=== PATIENT | male | born 1995 | race Caucasian/White ===

== ENCOUNTER → 2016-10-26 | Outpatient (CLI) | payer BC, OTHER ==
[~2016-10-26] MED LIST: CIPR0.3S4 OPR; HYDR-5688 PO
[2016-10-26 16:57] LABS: BASO % 0.2 %; BASO ABS # 0.01 K/uL (0-0.2); COMPLETE YES; EOS % 0.9 %; HEMATOCRIT 42.8 % (42-52); IG% 0.5 %; LYMPH % 25.5 %; LYMPH ABS # 1.62 K/uL (1.2-3.4); MEAN CORPUSCULAR HEMOGLOBIN 29.5 pg (25-34); MEAN PLATELET VOLUME 9.3 fL (7.4-10.4); MONO % 8.6 %; NEUT % 64.3 %; PLATELET COUNT 272 K/uL (130-400); RED BLOOD COUNT 5.22 M/uL (4.7-6.1); WHITE BLOOD COUNT 6.36 K/uL (4.8-10.8)
[2016-10-26 17:01] LABS: URINE APPEARANCE CLEAR (CLEAR); URINE BILIRUBIN NEG (NEG); URINE COLOR YELLOW; URINE EPITHELIAL CELL AUTO 0-5 /lpf (0-5); URINE NITRITE NEG (NEG); URINE SPECIFIC GRAVITY 1.023 (1.000-1.030); UROBILINOGEN NEG (NEG); ZZUR CULT IF INDIC CLEAN CATCH NO
[2016-10-26 17:10] LABS: ALT/SGPT 52 U/L (12-78); BLOOD UREA NITROGEN 19 mg/dl (7-18); BUN/CREATININE RATIO 19.3 (10-20); CALCIUM 8.6 mg/dl (8.5-10.1); CARBON DIOXIDE 26 mmol/L (21-32); CHLORIDE 103 mmol/L (98-107); GLUCOSE 108 mg/dl (70-99); POTASSIUM 3.7 mmol/L (3.5-5.1); SODIUM 139 mmol/L (136-145)
[2016-10-26 17:13] LABS: ALB/GLOB RATIO 1.2 (0.9-2); ALKALINE PHOSPHATASE 63 U/L (45-117); AST/SGOT 28 U/L (15-37)
[2016-10-26 17:15] LABS: MANUAL MICROSCOPIC REQUIRED? NO; REVIEW REQ? NO
== END | disposition home or self-care (01) ==
LOC: C.LABBFT 15:11
PROVIDERS: ATTEND Nurse Practitioner
DX: R10.812 Left upper quadrant abdominal tenderness (principal)

== ENCOUNTER → 2016-10-26 | Outpatient (CLI) | payer BC ==
--- NOTE | 2016-10-26 16:04 | DIAGNOSTIC IMAGING REPORT ---
KUB CLINICAL HISTORY: Left upper quadrant abdominal pain. FINDINGS: 2 AP abdominal radiographs are obtained. No prior studies are available for comparison at the time of dictation. There is a nonobstructed abdominal bowel gas pattern. Mild colonic fecal retention is noted. There is no evidence of intraperitoneal free air. No abnormal abdominal calcifications are identified. The bony structures appear intact. IMPRESSION: Unremarkable abdominal radiographs. Electronically signed by: Mukesh Alvarez M.D. 10/26/2016 4:02 PM Dictated Date/Time: 10/26/2016 4:01 PM
== END | disposition home or self-care (01) ==
LOC: C.RAD1850 15:52
PROVIDERS: ATTEND Nurse Practitioner
DX: R10.812 Left upper quadrant abdominal tenderness (principal)

== ENCOUNTER → 2016-10-28 | Outpatient (CLI) | payer BC ==
--- NOTE | 2016-10-28 12:13 | DIAGNOSTIC IMAGING REPORT ---
ABDOMINAL ULTRASOUND, RIGHT UPPER QUADRANT HISTORY: Left upper quadrant abdominal pain.. COMPARISON: None. FINDINGS: The size of the spleen is borderline increased, measuring 13.5 cm in maximal diameter. No perisplenic fluid is present. No splenic lesion is identified. The left kidney is unremarkable. There is no left hydronephrosis. Sonography of the left aspect of the abdomen at site of maximal pain revealed no abnormality. IMPRESSION: 1. Borderline splenomegaly. No perisplenic fluid. 2. No left hydronephrosis. 3. No sonographic abnormality within the left aspect of the abdomen at site of maximal pain. Electronically signed by: Angel Echols M.D. 10/28/2016 12:12 PM Dictated Date/Time: 10/28/2016 12:11 PM
== END | disposition home or self-care (01) ==
LOC: C.ULTR 11:40
PROVIDERS: ATTEND Nurse Practitioner
DX: R10.812 Left upper quadrant abdominal tenderness (principal)

== ENCOUNTER 2017-03-19 11:17 | Emergency (ER) | payer BC ==
[~2017-03-19] VITALS: Ht 170.2 cm; Wt 93.2 kg
[2017-03-19 11:20] VITALS: Ht 170.2 cm; Wt 93.2 kg
[2017-03-19] MEDS ORDERED: PROPARACAINE HCL 0.5% OP SOLN 15 ML BTL OP STA (11:46)
[2017-03-19] MEDS ORDERED: HYDROCODONE/ACETAMOPHEN 5/325MG TAB PO STA (12:07)
[2017-03-19] MEDS ORDERED: CIPROFLOXACIN HCL 3.5 GM TUBE OPR ONE (12:15)
[2017-03-19] MEDS ORDERED: HYDR-5688 PO (12:19)
[2017-03-19] MEDS ORDERED: CIPR0.3S4 OPR (12:19)
--- NOTE | 2017-03-19 12:28 | EMERGENCY ROOM VISIT NOTE ---
ED Visit Note First contact with patient: 11:45 CHIEF COMPLAINT: Eye pain HISTORY OF PRESENT ILLNESS: This 21-year-old male patient presents to the emergency department complaining of pain in the right eye that started this morning. Patient states that he slept with his contacts in last night, this morning when he took them out he noticed some pain in his right eye. He put the contacts back in, but continued to have irritation of the right eye that has become severe. There has not been any redness noted to the eye, but there has been constant tearing from the right eye and mild swelling of the eyelids. Patient is unable to open his right eye due to severe pain, and light bothers the eye. The vision has not been decreased over all. The patient does wear contacts daily, and states he has slept with them and before in the past, but states he is not supposed to. The patient rates the pain as sharp and burning and 10/10. The patient has not had previous injuries to this eye. Tetanus shot is up to date. REVIEW OF SYSTEMS: A 6 system review of systems was completed with positives and pertinent negatives listed in the HPI. ALLERGIES: See chart MEDICATIONS: See chart PMH: See chart SOCIAL HISTORY: See chart PHYSICAL EXAM: Vital Signs: Reviewed Nurse's notes, vital signs stable. Visual acuity was unable to be performed due to patient's pain and photophobia. GENERAL: Pleasant and cooperative, in no acute distress, but who is very uncomfortable from the eye problem. Well-developed well-nourished. EYES: The pupils are equal round and reactive to light and accommodation. EOMs are full and without tenderness. There is discharge of clear tears from the right eye which is slightly injected. There is no foreign body visible under the eyelid even after lid eversion. Funduscopic exam reveals no hemorrhages, papilledema, or other abnormalities. No foreign body was seen embedded in the cornea under slit lamp exam. The cornea was clear and no hyphema was seen. Fluorescein uptake was observed with ultraviolet light significant for a corneal ulcer, central an overlying most of the iris. No corneal abrasions noted. EMERGENCY DEPARTMENT COURSE: I examined the patient. Alcaine 2 drops were placed in the patient's right eye. A slit lamp exam was performed as above. Ciloxan ointment was placed in the patient's right eye. The patient's pain was treated with Daisy, and he was sent with a prescription for this to continue managing his pain. Patient was instructed to follow up tomorrow with his eye doctor, he verbalized understanding. The patient was discharged home in good condition. Current/Historical Medications Scheduled Ciprofloxacin Ophth Soln (Ciprofloxacin Ophth Soln), 2 DROPS OPR Q4H Scheduled PRN Hydrocodone/Acetaminophen 5MG/325MG (Daisy 5MG/325MG), 1-2 TABLET PO Q4H PRN for Pain Allergies Coded Allergies: Amoxicillin (Verified Allergy, Unknown, UNKN, 03/19/17) Penicillins (Unverified Allergy, Unknown, UNKN, 03/19/17) HAPPENED A BABY Vital Signs Date Time Temp Pulse Resp B/P (MAP) Pulse Ox O2 Delivery O2 Flow Rate FiO2 03/19/17 13:10 36.3 83 18 140/90 97 03/19/17 11:20 36.3 88 18 161/94 96 Room Air Medications Administered Medications (Trade) Dose Ordered Sig/Romain Route Start Time Stop Time Status Last Admin Dose Admin Proparacaine HCl (Alcaine 0.5% Oph Soln) 2 drops NOW STAT OP 03/19/17 11:46 03/19/17 11:47 DC 03/19/17 11:46 2 DROPS Acetaminophen/ Hydrocodone Bitart (Daisy 5/325 Tab) 2 tab NOW STAT PO 03/19/17 12:07 03/19/17 12:09 DC 03/19/17 12:07 2 TAB Ciprofloxacin HCl (Ciloxan 0.3% Op Oint) 1 appln NOW ONCE OPR 03/19/17 12:15 03/19/17 12:16 DC 03/19/17 12:14 1 APPLN Departure Information Impression Primary Impression: Central corneal ulcer of right eye Dispostion Home / Self-Care Condition GOOD Prescriptions Hydrocodone/Acetaminophen 5MG/325MG (Daisy 5MG/325MG) Tab 1-2 TABLET PO Q4H Y for Pain for 3 Days, #30 TAB For Initial Treatment Prov: Mame Cadet CRNP 03/19/17 Ciprofloxacin Ophth Soln (CIPROFLOXACIN OPHTH SOLN) 0.3 % Betsy 2 DROPS OPR Q4H for 14 Days, #20 ML Prov: Mame Cadet CRNP 03/19/17 Referrals Bryant Barrett M.D. (PCP) Patient Instructions ED Ulcer Cornea, My [facility] Additional Instructions You have been diagnosed with a corneal ulcer. It is very important that you do not wear your contacts until you are cleared to do so by your eye doctor.Throw away the current set of contacts that you have been wearing, as they are most likely contaminated. Use the ciprofloxacin ointment 0.5 inch in the right eye every 30 minutes for the rest of today. After that, switch to the ciprofloxacin drops, 2 drops to the right eye every 1 hour for 1 day. Then you can switch to 2 drops every 4 hours for 12 days. You must follow-up with your eye doctor in 24 hours for a recheck of your eye. You may also use refresh eye drops or artificial tears in between antibiotic drops to keep your eye moist for comfort. Use Ibuprofen 600 mg every 6 hrs as needed for moderate pain. Use the Daisy 1-2 tablets every four to six hours as needed for severe pain. This is a narcotic, DO NOT drive, drink alcohol, or operate machinery while you are taking this. Please return to the emergency department for severe worsening pain, changes in vision, or fevers/chills.
[2017-03-19 13:10] VITALS: BP 140/90; PULSE 83; TEMP 36.3; O2SAT 97
== END 2017-03-19 12:50 | disposition home or self-care (01) ==
LOC: C.EDB 11:18 → C.EDD 12:50
DX: H16.011 Central corneal ulcer, right eye (principal); Z88.0 Allergy status to penicillin; Z88.1 Allergy status to other antibiotic agents

== ENCOUNTER → 2017-10-24 | Outpatient (CLI) | payer BC | END | disposition home or self-care (01) | LOC: C.LABSPEC 15:47 | PROVIDERS: ATTEND Internal Medicine | DX: J02.9 Acute pharyngitis, unspecified (principal); B95.1 Streptococcus, group B, as the cause of diseases classified elsewhere ==